=== PATIENT | female | born 1980 | race African-American/Black ===

== ENCOUNTER 2018-01-20 08:21 | Day surgery (SDC) | payer OTHER ==
[2018-01-19 10:55] VITALS: BMI 29.0
[2018-01-20 09:04] LABS: INR-International Normal Ratio 1.3; PTT 33.4 SEC (22.9-36.1); Prothrombin Time 16.6 SEC (12.0-14.7)
[2018-01-20 09:08] LABS: Hemoglobin 14.3 g/dL (12.0-16.0); Mean Corpuscular HGB CONC 33.4 g/dL (32.0-36.0); Mean Corpuscular Hemoglobin 31.9 pg (27.0-31.0); Mean Corpuscular Volume 95.6 fL (78.0-98.0); Mean Platelet Volume 10.8 fL (7.4-10.4); Platelet Count 116 thou/uL (130-400); RBC Distribution Width 13.4 % (11.5-14.5); Red Blood Cell (RBC) Count 4.48 mill/uL (4.20-5.40); White Blood Cell (WBC) Count 6.2 thou/uL (4.8-10.8)
[2018-01-20 09:21] LABS: Anion Gap 12 mmol/L (10-20); BUN (Urea Nitrogen) 20 mg/dL (7.0-18.7); Calc. Creatinine Clearance 104 mL/min (70-130); Calcium 9.2 mg/dL (7.8-10.44); Carbon Dioxide 26 mmol/L (22-29); Chloride 104 mmol/L (98-107); Estimated GFR-MDRD 86; Glucose 85 mg/dL (70-105); Potassium 3.4 mmol/L (3.5-5.1); Sodium 139 mmol/L (136-145)
[2018-01-20] MEDS ORDERED: CEFAZOLIN/Water 2 GM/20 ML SYRINGE ONE (10:12)
[2018-01-20 10:14] LABS: Band 1 % (5-11); Eosinophils 1 % (0-10); Lymphocytes 38 % (21-51); MDiff Complete? YES; Monocytes 2 % (0-10); Neutrophil 58 % (42-75); Target Cells MODERATE= 6-15 cells (100X) (0-1/hpf)
[2018-01-20] MEDS ORDERED: Midazolam HCl 2 mg/2 ml Vial ONE (10:30)
[2018-01-20] MEDS ORDERED: Fentanyl 100 MCG/2 ML VIAL ONE (10:30)
[2018-01-20] MEDS ORDERED: Lidocaine 1% (PF) 30 ML VIAL ONE ×2 (10:35→11:09)
--- NOTE | 2018-01-20 13:10 | RAD ---
PORTABLE CHEST: History: Post pacemaker placement. FINDINGS: Heart size is enlarged. Transvenous pacemaker is in place. No signs of pneumothorax. IMPRESSION: Placement of a pacemaker. No signs of pneumothorax. POS: [facility]
[2018-01-20] MEDS ORDERED: Iopamidol 370 76% 50 ML VIAL FS ONE (14:46)
--- NOTE | 2018-01-20 15:21 | EKG ---
Test Reason : PREOP Blood Pressure : / mmHG Vent. Rate : 093 BPM Atrial Rate : 093 BPM P-R Int : 226 ms QRS Dur : 102 ms QT Int : 390 ms P-R-T Axes : 065 178 050 degrees QTc Int : 484 ms Sinus rhythm with 1st degree A-V block Possible Left atrial enlargement Right axis deviation Low voltage QRS Cannot rule out Anterior infarct , age undetermined Abnormal ECG No previous ECGs available Confirmed by MICHAEL REYES, SShelli ([id number]) on 01/20/2018 3:21:07 PM Referred By: AMINA Confirmed By:DR. Cierra RODRIGUEZ MD
== END 2018-01-20 15:00 | disposition home or self-care (01) ==
LOC: CCL 08:21
PROVIDERS: ATTEND Internal Medicine Cardiovascular Disease
PROC: 02HL3KZ Insertion of Defibrillator Lead into Left Ventricle, Percutaneous Approach (ICD-10-PCS; principal; 2018-01-20)
PROC: 0JH608Z Insertion of Defibrillator Generator into Chest Subcutaneous Tissue and Fascia, Open Approach (ICD-10-PCS; principal; 2018-01-20)
DX: I50.22 Chronic systolic (congestive) heart failure (principal); I42.8 Other cardiomyopathies; Z87.891 Personal history of nicotine dependence; Z79.82 Long term (current) use of aspirin; Z79.899 Other long term (current) drug therapy
CPT/HCPCS: 33240; 36005; 36415; 71045; 75820; 80048; 85025; 85610; 85730; 93005; 93010; 93641; C1777; C1786; J2001; J2250; J3010; J3490

== ENCOUNTER 2019-11-15 13:26 | Emergency (ER) | payer MEDICARE, OTHER ==
[2019-11-16 14:47] LABS: SARS-CoV-2 MS2 Positive; SARS-CoV-2 N Gene Negative; SARS-CoV-2 S Gene Negative; SARS-CoV-2 orf1ab Negative
== END 2019-11-15 13:54 | disposition home or self-care (01) ==
LOC: ERS 13:26
DX: Z20.828 Contact with and (suspected) exposure to other viral communicable diseases (principal)
CPT/HCPCS: 99283; U0003; 87635

== ENCOUNTER 2021-12-05 09:32 | Inpatient (IN) | payer MEDICARE, OTHER ==
[2021-12-05 10:29] LABS: Hemoglobin 12.8 g/dL (12.0-16.0); Mean Corpuscular HGB CONC 33.7 g/dL (32.0-36.0); Mean Corpuscular Volume 94.9 fL (78.0-98.0); Red Blood Cell (RBC) Count 4.02 mill/uL (4.20-5.40); White Blood Cell (WBC) Count 6.4 thou/uL (4.8-10.8)
[2021-12-05 10:45] LABS: ALT (SGPT) 322 U/L (8-55); AST (SGOT) 278 U/L (5-34); Albumin 3.9 g/dL (3.5-5.0); Alkaline Phosphatase 53 U/L (40-110); Anion Gap 19 mmol/L (10-20); BUN (Urea Nitrogen) 42 mg/dL (7.0-18.7); Bilirubin, Total 2.9 mg/dL (0.2-1.2); Calc. Creatinine Clearance 0 mL/min (70-130); Calcium 9.5 mg/dL (7.8-10.44); Carbon Dioxide 27 mmol/L (22-29); Chloride 95 mmol/L (98-107); Estimated GFR 38; Glucose 130 mg/dL (70-105); Lipase 23 U/L (8-78); Protein, Total 6.9 g/dL (6.0-8.3); Sodium 137 mmol/L (136-145)
[2021-12-05 10:50] LABS: Band 1 % (5-11); Eosinophils 1 % (0-10); Lymphocytes 25 % (21-51); MDiff Complete? YES; Mean Platelet Volume 11.7 fL (7.4-10.4); Monocytes 8 % (0-10); Neutrophil 64 % (42-75); Platelet Count 101 thou/uL (130-400); Platelet Morphology Comment Appears Decreased; Polychromasia SLIGHT = 2-3 cells (100X) (0-2/hpf); RBC Distribution Width 14.3 % (11.5-14.5); Target Cells MODERATE= 6-15 cells (100X) (0-1/hpf)
[2021-12-05 11:05] LABS: CKMB 1.1 ng/mL (0-6.6)
[2021-12-05] MEDS ORDERED: Ondansetron PF 4 MG/2 ML Vial ONE (11:34)
[2021-12-05] MEDS ORDERED: Ondansetron ODT 4 MG TAB PO PRN (12:04)
[2021-12-05] MEDS ORDERED: Acetaminophen 325 MG TAB PO PRN (12:04)
[2021-12-05] MEDS ORDERED: Ondansetron PF 4 MG/2 ML Vial IVP PRN (12:04)
[2021-12-05] MEDS ORDERED: Furosemide 20 MG/2 ML VIAL SLOW IVP SCH (13:03)
[2021-12-05] MEDS ORDERED: Furosemide 20 MG/2 ML VIAL ONE (13:30)
[2021-12-05] MEDS ORDERED: Acetaminophen 325 MG TAB ONE (13:30)
[2021-12-05] MEDS ORDERED: DOBUTamine 500 mg/250 ml 250 ML IVPB SCH (14:00)
[2021-12-05 14:32] LABS: SARS-CoV-2 NAA Rapid Test Not Detected (NotDetected)
[2021-12-05 16:44] LABS: Troponin I 0.041 ng/mL (< 0.028)
[2021-12-05] MEDS: DOPamine 400 MG/D5W 250 ML 250 ML IVPB SCH (17:28)
[2021-12-05 17:35] VITALS: BMI 24.3
[2021-12-06 04:44] LABS: ALT (SGPT) 386 U/L (8-55); AST (SGOT) 317 U/L (5-34); Albumin 4.1 g/dL (3.5-5.0); Alkaline Phosphatase 58 U/L (40-110); Anion Gap 17 mmol/L (10-20); BUN (Urea Nitrogen) 36 mg/dL (7.0-18.7); Bilirubin, Total 3.3 mg/dL (0.2-1.2); Calc. Creatinine Clearance 54 mL/min (70-130); Calcium 9.6 mg/dL (7.8-10.44); Carbon Dioxide 26 mmol/L (22-29); Chloride 98 mmol/L (98-107); Estimated GFR 46; Glucose 102 mg/dL (70-105); Protein, Total 7.1 g/dL (6.0-8.3); Sodium 137 mmol/L (136-145)
[2021-12-06 05:09] LABS: Anisocytosis SLIGHT = 6-15 cells (100X) (0-5/hpf); Band 3 % (5-11); Hemoglobin 13.1 g/dL (12.0-16.0); Lymphocytes 33 % (21-51); MDiff Complete? YES; Mean Corpuscular HGB CONC 33.8 g/dL (32.0-36.0); Mean Corpuscular Hemoglobin 32.2 pg (27.0-31.0); Mean Corpuscular Volume 95.1 fL (78.0-98.0); Mean Platelet Volume 11.1 fL (7.4-10.4); Monocytes 6 % (0-10); Neutrophil 58 % (42-75); Platelet Count 112 thou/uL (130-400); Platelet Morphology Comment Appears Decreased; RBC Distribution Width 14.6 % (11.5-14.5); Red Blood Cell (RBC) Count 4.07 mill/uL (4.20-5.40); White Blood Cell (WBC) Count 7.2 thou/uL (4.8-10.8)
[2021-12-06] MEDS: Furosemide 40 MG/4 ML VIAL SLOW IVP SCH ×2 (07:25→13:17)
[2021-12-06] MEDS: Aspirin Chewable 81 MG TAB PO SCH (08:29)
[2021-12-06] MEDS: DOPamine 400 MG/D5W 250 ML 250 ML IVPB SCH (13:17)
[2021-12-06 16:25] LABS: BHCG - Serum Negative (NEGATIVE); Pregs Control Background? CLEAR/WHITE (CLR/WHITE); Pregs Control Bar Appear? YES (CONTROL BAR)
[2021-12-07 05:01] LABS: ALT (SGPT) 305 U/L (8-55); AST (SGOT) 212 U/L (5-34); Albumin 3.7 g/dL (3.5-5.0); Alkaline Phosphatase 55 U/L (40-110); Anion Gap 16 mmol/L (10-20); BUN (Urea Nitrogen) 29 mg/dL (7.0-18.7); Bilirubin, Total 2.9 mg/dL (0.2-1.2); Calc. Creatinine Clearance 74 mL/min (70-130); Calcium 9.2 mg/dL (7.8-10.44); Carbon Dioxide 29 mmol/L (22-29); Chloride 98 mmol/L (98-107); Estimated GFR 63; Globulin 3.1 g/dL (2.4-3.5); Glucose 104 mg/dL (70-105); Potassium 3.7 mmol/L (3.5-5.1); Protein, Total 6.8 g/dL (6.0-8.3); Sodium 139 mmol/L (136-145)
[2021-12-07 05:23] LABS: Band 1 % (5-11); Hemoglobin 13.2 g/dL (12.0-16.0); Lymphocytes 22 % (21-51); MDiff Complete? YES; Mean Corpuscular Hemoglobin 31.1 pg (27.0-31.0); Mean Platelet Volume 10.9 fL (7.4-10.4); Monocytes 10 % (0-10); Neutrophil 67 % (42-75); Platelet Count 117 thou/uL (130-400); Platelet Morphology Comment Appears Decreased; RBC Distribution Width 14.9 % (11.5-14.5); Red Blood Cell (RBC) Count 4.25 mill/uL (4.20-5.40); Target Cells MARKED = >16 cells (100X) (0-1/hpf); White Blood Cell (WBC) Count 6.7 thou/uL (4.8-10.8)
[2021-12-07] MEDS: Furosemide 40 MG/4 ML VIAL SLOW IVP SCH ×2 (06:13→14:35)
[2021-12-07] MEDS ORDERED: Aspirin 81 mg Enteric Coated Tablet PO SCH (09:00)
[2021-12-07] MEDS ORDERED: Atorvastatin Calcium 20 MG TAB PO SCH (09:00)
[2021-12-07] MEDS: Aspirin Chewable 81 MG TAB PO SCH (09:23)
[2021-12-07] MEDS: DOPamine 400 MG/D5W 250 ML 250 ML IVPB SCH (10:13)
[2021-12-08 04:31] LABS: ALT (SGPT) 254 U/L (8-55); AST (SGOT) 147 U/L (5-34); Albumin 3.5 g/dL (3.5-5.0); Alkaline Phosphatase 57 U/L (40-110); Anion Gap 14 mmol/L (10-20); BUN (Urea Nitrogen) 25 mg/dL (7.0-18.7); Bilirubin, Total 2.7 mg/dL (0.2-1.2); Calc. Creatinine Clearance 76 mL/min (70-130); Calcium 8.9 mg/dL (7.8-10.44); Carbon Dioxide 32 mmol/L (22-29); Chloride 97 mmol/L (98-107); Estimated GFR 68; Glucose 96 mg/dL (70-105); Protein, Total 6.5 g/dL (6.0-8.3); Sodium 139 mmol/L (136-145)
[2021-12-08 04:57] LABS: Anisocytosis SLIGHT = 6-15 cells (100X) (0-5/hpf); Band 2 % (5-11); Eosinophils 2 % (0-10); Hemoglobin 14.2 g/dL (12.0-16.0); Lymphocytes 15 % (21-51); MDiff Complete? YES; Mean Corpuscular HGB CONC 33.4 g/dL (32.0-36.0); Mean Corpuscular Hemoglobin 31.9 pg (27.0-31.0); Mean Corpuscular Volume 95.5 fL (78.0-98.0); Mean Platelet Volume 10.8 fL (7.4-10.4); Monocytes 5 % (0-10); Neutrophil 76 % (42-75); Platelet Count 115 thou/uL (130-400); Platelet Morphology Comment Appears Decreased; Red Blood Cell (RBC) Count 4.46 mill/uL (4.20-5.40); Target Cells MODERATE= 6-15 cells (100X) (0-1/hpf); White Blood Cell (WBC) Count 6.9 thou/uL (4.8-10.8)
[2021-12-08] MEDS: Furosemide 40 MG/4 ML VIAL SLOW IVP SCH (05:18)
[2021-12-08] MEDS: DOPamine 400 MG/D5W 250 ML 250 ML IVPB SCH (07:45)
[2021-12-08] MEDS: Aspirin Chewable 81 MG TAB PO SCH (10:34)
[2021-12-08] MEDS ORDERED: Electrolyte Replacement Protocol 1 EACH FS SCH (11:30)
[2021-12-08 12:40] VITALS: TEMP 97.6
[2021-12-08 13:12] VITALS: BP 110/62
== END 2021-12-08 14:53 | disposition home or self-care (01) | DRG 281 ==
LOC: ERS 09:32 → ERHOLD 12:00 → 2NO 15:07
PROVIDERS: ADMIT Internal Medicine; ATTEND Internal Medicine
PROC: 4B02XTZ Measurement of Cardiac Defibrillator, External Approach (ICD-10-PCS; principal; 2021-12-05)
PROC: 3E033XZ Introduction of Vasopressor into Peripheral Vein, Percutaneous Approach (ICD-10-PCS; 2021-12-05)
DX: I50.23 Acute on chronic systolic (congestive) heart failure (principal); I21.A1 Myocardial infarction type 2; D61.818 Other pancytopenia; N17.9 Acute kidney failure, unspecified; I42.0 Dilated cardiomyopathy; Z20.822 Contact with and (suspected) exposure to COVID-19; N18.2 Chronic kidney disease, stage 2 (mild); K76.1 Chronic passive congestion of liver; I44.1 Atrioventricular block, second degree; I95.9 Hypotension, unspecified; Z79.899 Other long term (current) drug therapy; Z79.82 Long term (current) use of aspirin; Z82.49 Family history of ischemic heart disease and other diseases of the circulatory system; Z87.891 Personal history of nicotine dependence; Z28.21 Immunization not carried out because of patient refusal; Z95.810 Presence of automatic (implantable) cardiac defibrillator
CPT/HCPCS: 36415; 71045; 76705; 80053; 82553; 83690; 83880; 84484; 84703; 85025; 93005; 93306; 93798; 96374; J1265; J1940; J2405

== ENCOUNTER 2021-12-18 20:44 | Emergency (ER) | payer MEDICARE, OTHER ==
[2021-12-18 22:09] LABS: BHCG - Serum Negative (NEGATIVE); Pregs Control Background? CLEAR/WHITE (CLR/WHITE); Pregs Control Bar Appear? YES (CONTROL BAR)
[2021-12-18 22:23] LABS: Hemoglobin 12.5 g/dL (12.0-16.0); Mean Corpuscular Hemoglobin 32.5 pg (27.0-31.0); Mean Corpuscular Volume 95.5 fL (78.0-98.0); RBC Distribution Width 16.7 % (11.5-14.5); Red Blood Cell (RBC) Count 3.86 mill/uL (4.20-5.40); White Blood Cell (WBC) Count 5.8 thou/uL (4.8-10.8)
[2021-12-18 22:26] LABS: ALT (SGPT) 52 U/L (8-55); AST (SGOT) 37 U/L (5-34); Albumin 4.1 g/dL (3.5-5.0); Alkaline Phosphatase 56 U/L (40-110); Anion Gap 14 mmol/L (10-20); BUN (Urea Nitrogen) 37 mg/dL (7.0-18.7); Bilirubin, Total 2.6 mg/dL (0.2-1.2); Calc. Creatinine Clearance 0 mL/min (70-130); Calcium 9.3 mg/dL (7.8-10.44); Carbon Dioxide 25 mmol/L (22-29); Chloride 102 mmol/L (98-107); Estimated GFR 43; Globulin 3.1 g/dL (2.4-3.5); Glucose 91 mg/dL (70-105); Potassium 4.4 mmol/L (3.5-5.1); Protein, Total 7.2 g/dL (6.0-8.3); Sodium 137 mmol/L (136-145)
[2021-12-18 22:45] LABS: CKMB 2.1 ng/mL (0-6.6)
[2021-12-18 23:02] LABS: Anisocytosis SLIGHT = 6-15 cells (100X) (0-5/hpf); Band 1 % (5-11); Lymphocytes 42 % (21-51); MDiff Complete? YES; Monocytes 6 % (0-10); Neutrophil 51 % (42-75); Nucleated RBC 1 % (0); Platelet Count 104 thou/uL (130-400); Platelet Morphology Comment Appears Decreased
[2021-12-19] MEDS ORDERED: Aspirin Chewable 81 MG TAB ONE (00:34)
[2021-12-19] MEDS ORDERED: Furosemide 40 MG/4 ML VIAL ONE (00:34)
[2021-12-19 01:37] LABS: Troponin I 0.057 ng/mL (< 0.028)
== END 2021-12-19 01:51 | disposition home or self-care (01) ==
LOC: ERS 20:44
DX: I50.9 Heart failure, unspecified (principal); Z79.899 Other long term (current) drug therapy; Z79.82 Long term (current) use of aspirin
CPT/HCPCS: 36415; 71045; 80053; 82553; 83880; 84484; 84703; 85025; 93005; 96374; J1940